=== PATIENT | male | born 1985 | race Caucasian/White ===

== ENCOUNTER 2016-10-26 18:41 | Emergency (ER) | payer SELFPAY ==
[2016-10-26] MEDS ORDERED: NORMAL SALINE 1000 ML 2,000 ML IV ONE (19:06)
--- NOTE | 2016-10-26 19:10 | ER Document Report ---
ED General - General Stated Complaint: POSSIBLE DEHYDRATION,DIZZY,MUSCLE CRAMPS Cannot obtain history due to: Altered mental status Notes: Patient is a 31-year-old male with a remote history of acute renal failure that did require dialysis for a span of 6 months who presents lethargic, dehydrated, complaining of nausea. 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 Family noticed he was acting unusually when he arrived home and EMS was contacted. His initial blood pressure for EMS was in the 90s systolic. He received 650 mL of normal saline prior to arrival with improvement of his blood pressure in the 120s systolic. Patient is quite lethargic at time of arrival and has difficulty providing meaningful history on what has been provided. Family at the bedside states that he has a chronic history of epigastric pain with near daily vomiting. Past Medical History - General Information source: Patient - Social History Smoking Status: Current Every Day Smoker Frequency of alcohol use: None Drug Abuse: Marijuana Lives with: Family Family History: Reviewed & Not Pertinent Review of Systems - Review of Systems Notes: Constitutional: Negative for fever. HENT: Negative for sore throat. Eyes: Negative for visual changes. Cardiovascular: Negative for chest pain. Respiratory: Negative for shortness of breath. Gastrointestinal: Positive for epigastric abdominal pain and nausea Genitourinary: Negative for dysuria. Musculoskeletal: Negative for back pain. Skin: Negative for rash. Neurological: Negative for headaches, weakness or numbness. 10 point ROS negative except as marked above and in HPI. Physical Exam - Vital signs Notes: PHYSICAL EXAMINATION: GENERAL: Somewhat disheveled, lethargic. GCS 14 HEAD: Atraumatic, normocephalic. EYES: Pupils equal round and reactive to light, extraocular movements intact, sclera anicteric, conjunctiva are normal. ENT: nares patent, oropharynx clear without exudates. Dry mucous membranes. NECK: Normal range of motion, supple without lymphadenopathy LUNGS: Breath sounds clear to auscultation bilaterally and equal. No wheezes rales or rhonchi. HEART: Regular tachycardia without murmurs ABDOMEN: Soft, mild epigastric tenderness to palpation, normoactive bowel sounds. No guarding, no rebound. No masses appreciated. EXTREMITIES: Normal range of motion, no pitting or edema. No cyanosis. NEUROLOGICAL: No focal neurological deficits. Moves all extremities spontaneously and on command. PSYCH: Lethargic but does answer questions appropriately SKIN: Warm, Dry, normal turgor, no rashes or lesions noted. Course - Re-evaluation Re-evalutation: 10/26/16 19:08 Patient presents with mild lethargy, GCS 14, appears clinically quite dehydrated and has a clinical history consistent with likely severe dehydration as he is working for long periods of time outdoors and having minimal oral fluid intake. He is tachycardic at time of my initial assessment. He has no focal neurologic deficits. He denies any symptoms to suggest acute subarachnoid hemorrhage, PA, acute pulmonary embolus, or acute intra-abdominal pathology. He does have some mild epigastric tenderness on exam and family reports that this is chronic and in association with recent frequent reflux symptoms. Patient himself admits that this been a problem for at least one year. Will proceed with fluids, labs and reassess. 10/26/16 21:16 Patient is much improved and is overall appearance at this time, GCS 15 alert awake it of and talking. He is joking with me during my reassessment. Vitals normalized. Laboratories show mild CK elevation and very mild IFFI. Patient is tolerated oral intake without difficulty. His epigastric pain has improved after a GI cocktail and famotidine. I have encouraged him to discontinue marijuana use for at least 30 days as some of his symptoms appear consistent with cannabis induced vomiting. At this time will discharge with return precautions and follow-up recommendations. Verbal discharge instructions given a the bedside and opportunity for questions given. Medication warnings reviewed. Patient is in agreement with this plan and has verbalized understanding of return precautions and the need for primary care follow-up in the next 24-72 hours. - Laboratory Result Diagrams: 10/26/16 19:38 10/26/16 19:38 Laboratory results interpreted by me: 10/26/16 19:38 BUN 31 H Creatinine 1.43 H Est GFR (Non-Af Amer) 58 L Creatine Kinase 199 H Discharge - Discharge Clinical Impression: Epigastric abdominal pain, Dehydration Vomiting Qualifiers: Vomiting type: unspecified Vomiting Intractability: non-intractable Nausea presence: with nausea Qualified Code(s): R11.2 - Nausea with vomiting, unspecified Condition: Good Disposition: HOME, SELF-CARE Additional Instructions: Your symptoms appear to be most consistent with stomach or upper intestinal irritation. Your evaluation here today has not demonstrated an alternative cause for your symptoms. Please begin taking famotidine 40 mg in the morning and 40 mg at night. This medicine can be purchased directly [id number]. You may also take medicine such as Pepto-Bismol or Tums to assist with your pain. Please discontinue the use of marijuana for at least 30 days to see if this likewise could be causing your repetitive episodes of vomiting. Please be sure to drink plenty of fluids when you are outside working. Please follow closely with your primary care doctor in the next 24-48 hours regarding today's emergency department visit. Please return immediately if you develop persistent vomiting, worsening pain, again having bloody bowel movements, pass out, develop a fever greater than 100.4F, or have any other symptoms that are worrisome to you.
[2016-10-26 19:54] LABS: ABSOLUTE BASOPHILS # (AUTO) 0.1 10^3/uL (0.0-0.2); ABSOLUTE EOSINOPHILS # (AUTO) 0.1 10^3/uL (0.0-0.6); ABSOLUTE LYMPHOCYTES (AUTO) 1.5 10^3/uL (0.5-4.7); ABSOLUTE NEUT (AUTO) 7.8 10^3/uL (1.7-8.2); BASOPHILS % (AUTO) 0.7 % (0-2); HEMOGLOBIN 15.4 g/dL (13.5-17.0); HGB HCT DIFFERENCE 1.2; MEAN CORPUSCULAR HEMOGLOBIN 30.4 pg (27.0-33.4); MEAN CORPUSCULAR HGB CONC 34.2 g/dL (32.0-36.0); MEAN CORPUSCULAR VOLUME 89 fl (80-97); MONOCYTES % (AUTO) 9.7 % (3-13); RED BLOOD COUNT 5.07 10^6/uL (4.35-5.55); SEGMENTED NEUTROPHILS % (AUTO) 74.6 % (42-78); WHITE BLOOD COUNT 10.5 10^3/uL (4.0-10.5)
[2016-10-26 20:14] LABS: ALANINE AMINOTRANSFERASE 38 U/L (21-72); ALBUMIN 4.5 g/dL (3.5-5.0); ALKALINE PHOSPHATASE 77 U/L (38-126); ANION GAP 13 (5-19); ASPARTATE AMINO TRANSFERASE 28 U/L (17-59); BILIRUBIN,DIRECT 0.4 mg/dL (0.0-0.4); BILIRUBIN,TOTAL 1.1 mg/dL (0.2-1.3); BLOOD UREA NITROGEN 31 mg/dL (7-20); CALCIUM 9.1 mg/dL (8.4-10.2); CARBON DIOXIDE 23 mmol/L (22-30); CHLORIDE 105 mmol/L (98-107); CREATINE KINASE 199 U/L (55-170); CREATININE RESULT 1.43 mg/dL (0.52-1.25); GLUCOSE 88 mg/dL (75-110); LIPASE 36.6 U/L (23-300); POTASSIUM 4.7 mmol/L (3.6-5.0); SODIUM 140.9 mmol/L (137-145); TOTAL PROTEIN 7.5 g/dL (6.3-8.2)
[2016-10-26] MEDS ORDERED: ONDANSETRON HCL INJ/PF 4 MG/2 ML SDV IV ONE (21:00)
[2016-10-26] MEDS ORDERED: ONDANSETRON HCL INJ/PF 4 MG/2 ML SDV ONE (21:01)
[2016-10-26] MEDS ORDERED: FAMOTIDINE 20 MG TABLET PO ONE (21:04)
[2016-10-26] MEDS ORDERED: METOCLOPRAMIDE HCL ORAL SOLN 10 MG/10 ML UDCUP PO ONE (21:05)
[2016-10-26] MEDS ORDERED: MAG HYDROX/AL HYDROX/SIMETH SUSP 30 ML UDCUP PO ONE (21:05)
[2016-10-26] MEDS ORDERED: LIDOCAINE 2% VISCOUS SOLN 20 ML UDCUP PO ONE (21:05)
[2016-10-26] MEDS ORDERED: ONDANSETRON ODT 4 MG TAB (6 TAB/DSPK) PO PRN (21:19)
[2016-10-26 21:58] VITALS: BP 123/82
--- NOTE | 2016-10-27 21:50 | EKG REPORT ---
SEVERITY:- ABNORMAL ECG - SINUS RHYTHM INCOMPLETE RIGHT BUNDLE BRANCH BLOCK : Confirmed by: Modesta Soto MD 27-Oct-2016 21:50:02
== END 2016-10-26 21:58 | disposition home or self-care (01) ==
LOC: ER 18:41
DX: E86.0 Dehydration (principal); R53.83 Other fatigue; R11.2 Nausea with vomiting, unspecified; R10.13 Epigastric pain; R00.0 Tachycardia, unspecified; F12.10 Cannabis abuse, uncomplicated; F17.200 Nicotine dependence, unspecified, uncomplicated
CPT/HCPCS: 93005; 99284; 96361; 96374; 36415; 82550; 83690; 85025; 80053; 93010; J3490; J2405; J7030

== ENCOUNTER 2016-12-07 18:11 | Emergency (ER) | payer SELFPAY ==
[2016-12-07 18:29] VITALS: BP 134/86
== END 2016-12-07 19:08 | disposition left against medical advice (07) ==
LOC: ER 18:11
DX: Z53.21 Procedure and treatment not carried out due to patient leaving prior to being seen by health care provider (principal)

== ENCOUNTER 2017-01-16 14:33 | Emergency (ER) | payer OTHER ==
[2017-01-16] MEDS ORDERED: NORMAL SALINE 1000 ML 1,000 ML IV PRN (15:40)
[2017-01-16] MEDS ORDERED: KETOROLAC TROMETHAMINE INJ/PF 30 MG/1 ML SDV IV ONE (15:41)
--- NOTE | 2017-01-16 16:01 | ER Document Report ---
ED Medical Screen (RME) - General Chief Complaint: Nausea/Vomiting Stated Complaint: NAUSEA,SHAKY,ABDOMINAL PAIN Time Seen by Provider: 01/16/17 15:40 Mode of Arrival: Ambulatory Information source: Patient TRAVEL OUTSIDE OF THE [place] 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 Several hours ago, patient developed cramping to his right lateral rib area. Patient denies any specific trauma. Patient states he has been drinking adequate fluids. No fevers or chills. No nausea or vomiting. Patient states this has happened before and related to heat exposure. Patient did not take any medication for his symptoms. - Related Data Allergies/Adverse Reactions: No Known Allergies Allergy (Verified 01/16/17 16:07) Past Medical History - Social History Chew tobacco use (# tins/day): No Frequency of alcohol use: None Drug Abuse: None - Medical History Medical History: Negative Renal/ Medical History: Denies: Hx Peritoneal Dialysis Review of Systems - Review of Systems Respiratory: Other - Chest wall pain -: Yes All other systems reviewed and negative Physical Exam - Vital signs Vitals: Temp Pulse Resp BP Pulse Ox 98.1 F 83 18 130/89 H 100 01/16/17 14:38 01/16/17 14:38 01/16/17 14:38 01/16/17 14:38 01/16/17 14:38 Interpretation: Normal - General General appearance: Appears well In distress: Mild - HEENT Head: Normocephalic, Atraumatic Eyes: Normal Pupils: PERRL - Respiratory Respiratory status: No respiratory distress Chest status: Tender - Right lateral ribs Breath sounds: Normal Chest palpation: Normal - Cardiovascular Rhythm: Regular Heart sounds: Normal auscultation Murmur: No - Abdominal Inspection: Normal Distension: No distension Bowel sounds: Normal Tenderness: Nontender Organomegaly: No organomegaly - Extremities General upper extremity: Normal inspection, Nontender, Normal color, Normal ROM , Normal temperature General lower extremity: Normal inspection, Nontender, Normal color, Normal ROM , Normal temperature, Normal weight bearing. No: Mandie's sign - Neurological Neuro grossly intact: Yes Cognition: Normal Orientation: AAOx4 Gisela Coma Scale Eye Opening: Spontaneous Gisela Coma Scale Verbal: Oriented [place] Coma Scale Motor: Obeys Commands [place] Coma Scale Total: 15 Speech: Normal Motor strength normal: LUE, RUE, LLE, RLE Sensory: Normal - Skin Skin Temperature: Warm Skin Moisture: Dry Skin Color: Normal Course - Re-evaluation Re-evalutation: 01/16/17 18:24 Patient will be placed in the back treatment area. He will be reassessed by another ED provider. - Vital Signs Vital signs: Temp Pulse Resp BP Pulse Ox 98.1 F 83 18 130/89 H 100 01/16/17 14:38 01/16/17 14:38 01/16/17 14:38 01/16/17 14:38 01/16/17 14:38 - Laboratory Result Diagrams: 01/16/17 15:50 01/16/17 15:50 Laboratory results interpreted by me: 01/16/17 01/16/17 15:50 15:50 WBC 14.6 H RBC 6.01 H Hgb 18.1 H Hct 52.8 H Absolute Neutrophils 8.9 H Absolute Monocytes 1.7 H Chloride 93 L Anion Gap 24 H BUN 29 H Creatinine 1.78 H Est GFR ( Amer) 55 L Est GFR (Non-Af Amer) 45 L Calcium 12.3 H* Total Protein 10.9 H Albumin 6.4 H
[2017-01-16 16:05] LABS: ABSOLUTE BASOPHILS # (AUTO) 0.2 10^3/uL (0.0-0.2); ABSOLUTE EOSINOPHILS # (AUTO) 0.1 10^3/uL (0.0-0.6); ABSOLUTE LYMPHOCYTES (AUTO) 3.7 10^3/uL (0.5-4.7); ABSOLUTE MONOCYTES (AUTO) 1.7 10^3/uL (0.1-1.4); ABSOLUTE NEUT (AUTO) 8.9 10^3/uL (1.7-8.2); EOSINOPHILS % (AUTO) 0.9 % (0-6); HEMATOCRIT 52.8 % (37.9-51.0); HEMOGLOBIN 18.1 g/dL (13.5-17.0); HGB HCT DIFFERENCE 1.5; LYMPHOCYTES % (AUTO) 25.3 % (13-45); MEAN CORPUSCULAR HEMOGLOBIN 30.2 pg (27.0-33.4); MEAN CORPUSCULAR HGB CONC 34.3 g/dL (32.0-36.0); MEAN CORPUSCULAR VOLUME 88 fl (80-97); MONOCYTES % (AUTO) 11.6 % (3-13); RED BLOOD COUNT 6.01 10^6/uL (4.35-5.55); RED CELL DISTRIBUTION WIDTH 12.8 % (11.5-14.0); SEGMENTED NEUTROPHILS % (AUTO) 61.2 % (42-78); WHITE BLOOD COUNT 14.6 10^3/uL (4.0-10.5)
--- NOTE | 2017-01-16 16:18 | ER Document Report ---
ED General - General Mode of Arrival: Ambulatory Information source: Patient TRAVEL OUTSIDE OF THE [place] IN LAST 30 DAYS: No - HPI Onset: Other Similar symptoms previously: Yes <THU ADAMS - Last Filed: 01/16/17 17:37> <LUCIANO SINHA - Last Filed: 01/16/17 18:31> - General Chief Complaint: Nausea/Vomiting Stated Complaint: NAUSEA,SHAKY,ABDOMINAL PAIN Time Seen by Provider: 01/16/17 15:40 Notes: Patient is a 31-year-old male who presents to the emergency department today with complaints of diffuse muscle cramping. Patient states he has muscle cramping in his rib cage on the right side, legs bilaterally, and arms bilaterally. Patient states he has had symptoms like this in the past when working outside. Patient states he was working out in the heat all day today. ( THU ADAMS) - Related Data Allergies/Adverse Reactions: No Known Allergies Allergy (Verified 01/16/17 16:07) Past Medical History - General Information source: Patient - Social History Smoking Status: Current Every Day Smoker Cigarette use (# per day): Yes Chew tobacco use (# tins/day): No Frequency of alcohol use: None Drug Abuse: None Lives with: Family Family History: Reviewed & Not Pertinent Patient has suicidal ideation: No Patient has homicidal ideation: No Endocrine Medical History: Reports: Other - "hypoglycemia" Past Surgical History: Reports: Hx Herniorrhaphy - x2, Other - "head surgery", "back surgery" <THU ADAMS - Last Filed: 01/16/17 17:37> Review of Systems - Review of Systems Constitutional: No symptoms reported EENT: No symptoms reported Cardiovascular: No symptoms reported Respiratory: No symptoms reported Gastrointestinal: No symptoms reported Genitourinary: No symptoms reported Male Genitourinary: No symptoms reported Musculoskeletal: See HPI, Other - diffuse muscle cramps, right ribs/legs/arms Skin: No symptoms reported Hematologic/Lymphatic: No symptoms reported Neurological/Psychological: No symptoms reported -: Yes All other systems reviewed and negative <THU ADAMS - Last Filed: 01/16/17 17:37> Physical Exam <THU ADAMS - Last Filed: 01/16/17 17:37> <LUCIANO SINHA - Last Filed: 01/16/17 18:31> - Vital signs Vitals: Temp Pulse Resp BP Pulse Ox 98.1 F 83 18 130/89 H 100 01/16/17 14:38 01/16/17 14:38 01/16/17 14:38 01/16/17 14:38 01/16/17 14:38 - Notes Notes: Physical Exam: General: Alert. HEENT: Normocephalic. Atraumatic. PERRL. Extraocular movements intact. Oropharynx clear. Dry mucous membranes. Neck: Supple. Non-tender. Respiratory: No respiratory distress. Clear and equal breath sounds bilaterally. Right lateral chest wall tenderness with palpation. Cardiovascular: Regular rate and rhythm. Abdominal: Normal Inspection. Non-tender. No distension. Normal Bowel Sounds. Back: Non-tender. No deformity or step off. Extremities: Moves all four extremities. Upper extremities: Normal inspection. Normal ROM. Lower extremities: Normal inspection. No edema. Normal ROM. Neurological: Normal cognition. AAOx4. Normal speech. Psychological: Normal affect. Normal Mood. Skin: Hot to the touch. Appears flushed. (THU ADAMS) Course - Laboratory Result Diagrams: 01/16/17 15:50 01/16/17 15:50 <THU ADAMS - Last Filed: 01/16/17 17:37> - Laboratory Result Diagrams: 01/16/17 15:50 01/16/17 15:50 <LUCIANO SINHA - Last Filed: 01/16/17 18:31> - Re-evaluation Re-evalutation: 01/16/17 17:36 Patient is a 31-year-old male who was working outside all day and presents with feeling lightheaded and feeling cramping all over. The patient is clinically dehydrated and he is in some renal failure on his blood work. This is been explained to the patient. He is received 2 L of fluid. He is not really keen on staying at this point, however is recommended that he get at least another liter of fluid. He has been advised that he is free to leave at any time although it would be recommended that he get rehydrated before he goes home. 01/16/17 18:30 Patient has received his third bag of fluid and would like to go home. He is to stay hydrated at home. No questions. Stable for discharge. (LUCIANO SINHA) - Vital Signs Vital signs: Temp Pulse Resp BP Pulse Ox 98.1 F 83 18 130/89 H 100 01/16/17 14:38 01/16/17 14:38 01/16/17 14:38 01/16/17 14:38 01/16/17 14:38 - Laboratory Laboratory results interpreted by me: 01/16/17 01/16/17 15:50 15:50 WBC 14.6 H RBC 6.01 H Hgb 18.1 H Hct 52.8 H Absolute Neutrophils 8.9 H Absolute Monocytes 1.7 H Chloride 93 L Anion Gap 24 H BUN 29 H Creatinine 1.78 H Est GFR ( Amer) 55 L Est GFR (Non-Af Amer) 45 L Calcium 12.3 H* Total Protein 10.9 H Albumin 6.4 H Discharge <THU ADAMS - Last Filed: 01/16/17 17:37> <LUCIANO SINHA - Last Filed: 01/16/17 18:31> - Discharge Clinical Impression: Dehydration, Acute kidney injury Heat exhaustion Qualifiers: Encounter type: initial encounter Qualified Code(s): T67.5XXA - Heat exhaustion , unspecified, initial encounter Condition: Stable Disposition: HOME, SELF-CARE Instructions: Heat Exhaustion ([facility]), Dehydration ([facility]) Forms: Return to Work Scribe Attestation: 01/16/17 18:31 I personally performed the services described in the documentation, reviewed and edited the documentation which was dictated to the scribe in my presence, and it accurately records my words and actions. (LUCIANO SINHA) Scribe Documentation - Scribe Written by Scribe:: Curt Aguilar, 01/16/2017 1639 acting as scribe for :: Natalie <THU ADAMS - Last Filed: 01/16/17 17:37>
[2017-01-16 16:24] LABS: ALANINE AMINOTRANSFERASE 34 U/L (21-72); ALKALINE PHOSPHATASE 97 U/L (38-126); ASPARTATE AMINO TRANSFERASE 28 U/L (17-59); BILIRUBIN,DIRECT 0.4 mg/dL (0.0-0.4); BILIRUBIN,TOTAL 1.3 mg/dL (0.2-1.3); BLOOD UREA NITROGEN 29 mg/dL (7-20); CREATININE RESULT 1.78 mg/dL (0.52-1.25); GLUCOSE 96 mg/dL (75-110); POTASSIUM 4.4 mmol/L (3.6-5.0); TOTAL PROTEIN 10.9 g/dL (6.3-8.2)
[2017-01-16 16:33] LABS: CARBON DIOXIDE 23 mmol/L (22-30); CHLORIDE 93 mmol/L (98-107); SODIUM 139.6 mmol/L (137-145)
[2017-01-16] MEDS ORDERED: RINGERS SOLUTION,LACTATED 1,000 ML IV ONE ×2 (16:36→17:25)
[2017-01-16 16:56] LABS: ALBUMIN 6.4 g/dL (3.5-5.0); ANION GAP 24 (5-19)
[2017-01-16 16:57] LABS: CALCIUM 12.3 mg/dL (8.4-10.2)
[2017-01-16 18:37] VITALS: BP 134/82
== END 2017-01-16 18:37 | disposition home or self-care (01) ==
LOC: ER 14:33
DX: E86.0 Dehydration (principal); N17.9 Acute kidney failure, unspecified; T67.5XXA Heat exhaustion, unspecified, initial encounter; R11.2 Nausea with vomiting, unspecified; R10.9 Unspecified abdominal pain; R07.81 Pleurodynia; F17.210 Nicotine dependence, cigarettes, uncomplicated; X30.XXXA Exposure to excessive natural heat, initial encounter; Y99.0 Civilian activity done for income or pay
CPT/HCPCS: 99284; 96361; 96374; 36415; 82553; 82550; 85025; 80053; J1885; J7030; J7120

== ENCOUNTER 2017-06-24 18:40 | Emergency (ER) | payer SELFPAY ==
[2017-06-24 19:15] LABS: ABSOLUTE BASOPHILS # (AUTO) 0.1 10^3/uL (0.0-0.2); ABSOLUTE EOSINOPHILS # (AUTO) 0.2 10^3/uL (0.0-0.6); ABSOLUTE LYMPHOCYTES (AUTO) 1.4 10^3/uL (0.5-4.7); ABSOLUTE MONOCYTES (AUTO) 0.8 10^3/uL (0.1-1.4); ABSOLUTE NEUT (AUTO) 9.4 10^3/uL (1.7-8.2); BASOPHILS % (AUTO) 0.8 % (0-2); EOSINOPHILS % (AUTO) 1.6 % (0-6); HEMOGLOBIN 16.8 g/dL (13.5-17.0); HGB HCT DIFFERENCE 2.4; LYMPHOCYTES % (AUTO) 11.5 % (13-45); MEAN CORPUSCULAR HEMOGLOBIN 31.1 pg (27.0-33.4); MEAN CORPUSCULAR VOLUME 89 fl (80-97); MONOCYTES % (AUTO) 6.7 % (3-13); RED BLOOD COUNT 5.41 10^6/uL (4.35-5.55); RED CELL DISTRIBUTION WIDTH 13.4 % (11.5-14.0); SEGMENTED NEUTROPHILS % (AUTO) 79.4 % (42-78); WHITE BLOOD COUNT 11.9 10^3/uL (4.0-10.5)
[2017-06-24] MEDS ORDERED: QUETIAPINE FUMARATE 100 MG TABLET PO ONE (19:21)
--- NOTE | 2017-06-24 19:21 | ER Document Report ---
ED Psych Disorder / Suicide - General Chief Complaint: Psych Problem Stated Complaint: SUICIDAL IDEATIONS Time Seen by Provider: 06/24/17 19:20 Notes: 32 years old male with a history of depression has not been taking any medication over a year, presents today with crying and saying that his mind is racing unable to control it unable to sleep and having thoughts of killing himself. But has no methods. Therefore presented to the ED for help. Denies any auditory or visual hallucination. Denies any substance abuse except cannabis. Denies any alcohol abuse. TRAVEL OUTSIDE OF THE [place] IN LAST 30 DAYS: No - Related Data Allergies/Adverse Reactions: No Known Allergies Allergy (Verified 01/16/17 16:07) Past Medical History - Social History Smoking Status: Current Every Day Smoker Family History: Reviewed & Not Pertinent Patient has suicidal ideation: Yes Patient has homicidal ideation: No Renal/ Medical History: Denies: Hx Peritoneal Dialysis Psychiatric Medical History: Reports: Hx Depression Past Surgical History: Reports: Hx Herniorrhaphy - x2, Other - "head surgery", "back surgery" Review of Systems - Review of Systems Notes: REVIEW OF SYSTEMS: CONSTITUTIONAL : Denies fever, chills, or sweats. Denies recent illness. EENT: Denies eye, ear, throat, or mouth pain or symptoms. Denies nasal or sinus congestion or discharge. Denies throat, tongue, or mouth swelling or difficulty swallowing. CARDIOVASCULAR: Denies chest pain. Denies palpitations or racing or irregular heart beat. Denies ankle edema. RESPIRATORY: Denies cough, cold, or chest congestion. Denies shortness of breath, difficulty breathing, or wheezing. GASTROINTESTINAL: Denies abdominal pain or distention. Denies nausea, vomiting , or diarrhea. Denies blood in vomitus, stools, or per rectum. Denies black, tarry stools. Denies constipation. GENITOURINARY: Denies difficulty urinating, painful urination, burning, frequency, blood in urine, or discharge. MUSCULOSKELETAL: Denies back or neck pain or stiffness. Denies joint pain or swelling. SKIN: Denies rash, lesions or sores. HEMATOLOGIC : Denies easy bruising or bleeding. LYMPHATIC: Denies swollen, enlarged glands. NEUROLOGICAL: Denies confusion or altered mental status. Denies passing out or loss of consciousness. Denies dizziness or lightheadedness. Denies headache. Denies weakness or paralysis or loss of use of either side. Denies problems with gait or speech. Denies sensory loss, numbness, or tingling. Denies seizures. PSYCHIATRIC: As per history of complain ALL OTHER SYSTEMS REVIEWED AND NEGATIVE. Dictation was performed using [employer] recognition software PHYSICAL EXAMINATION: GENERAL: Well-appearing, well-nourished and in no acute distress. HEAD: Atraumatic, normocephalic. EYES: Pupils equal round and reactive to light, extraocular movements intact, sclera anicteric, conjunctiva are normal. ENT: Nares patent, oropharynx clear without exudates. Moist mucous membranes. NECK: Normal range of motion, supple without lymphadenopathy LUNGS: Breath sounds clear to auscultation bilaterally and equal. No wheezes rales or rhonchi. HEART: Regular rate and rhythm without murmurs ABDOMEN: Soft, nontender, nondistended abdomen. No guarding, no rebound. No masses appreciated. Musculoskeletal: Normal range of motion, no pitting or edema. No cyanosis. NEUROLOGICAL: Cranial nerves grossly intact. Normal speech, normal gait. Normal sensory, motor exams PSYCH: Suicidal, depressed crying SKIN: Warm, Dry, normal turgor, no rashes or lesions noted. Physical Exam - Vital signs Vitals: Temp Pulse Resp BP Pulse Ox 98 F 86 18 108/85 96 06/24/17 20:13 06/24/17 20:13 06/24/17 20:13 06/24/17 20:13 06/24/17 20:13 Course - Re-evaluation Re-evalutation: 06/24/17 21:46 lab reports were reviewed, IVC papers signed. - Vital Signs Vital signs: Temp Pulse Resp BP Pulse Ox 98 F 86 18 108/85 96 06/24/17 20:13 06/24/17 20:13 06/24/17 20:13 06/24/17 20:13 06/24/17 20:13 - Laboratory Result Diagrams: 06/24/17 18:55 06/24/17 18:55 Laboratory results interpreted by me: 06/24/17 06/24/17 18:55 18:55 WBC 11.9 H Seg Neutrophils % 79.4 H Lymphocytes % 11.5 L Absolute Neutrophils 9.4 H Carbon Dioxide 21 L ALT 76 H Albumin 5.1 H Salicylates < 1.0 L Acetaminophen < 10 L Discharge - Discharge Clinical Impression: Depression Qualifiers: Depression Type: major depressive disorder Major depression recurrence: recurrent Active/Remission status: currently active Major depression episode severity: severe Psychotic features: without psychotic features Qualified Code(s ): F33.2 - Major depressive disorder, recurrent severe without psychotic features Suicidal behavior Qualifiers: Attempted self-injury: without attempted self-injury Qualified Code(s): R46.89 - Other symptoms and signs involving appearance and behavior Disposition: PSYCH HOSP/UNIT
[2017-06-24 19:29] LABS: ALANINE AMINOTRANSFERASE 76 U/L (21-72); ALBUMIN 5.1 g/dL (3.5-5.0); ALKALINE PHOSPHATASE 71 U/L (38-126); ANION GAP 17 (5-19); ASPARTATE AMINO TRANSFERASE 31 U/L (17-59); BILIRUBIN,DIRECT 0.2 mg/dL (0.0-0.4); BILIRUBIN,TOTAL 0.5 mg/dL (0.2-1.3); BLOOD UREA NITROGEN 17 mg/dL (7-20); CARBON DIOXIDE 21 mmol/L (22-30); CHLORIDE 106 mmol/L (98-107); GLUCOSE 97 mg/dL (75-110); SODIUM 143.6 mmol/L (137-145); TOTAL PROTEIN 8.1 g/dL (6.3-8.2)
[2017-06-24 19:30] LABS: ALCOHOL < 10 mg/dL (NONE DETECTED)
[2017-06-24 19:41] LABS: APPEARANCE,URINE SLIGHTLY-CLOUDY; BILIRUBIN,URINE NEGATIVE (NEGATIVE); GLUCOSE, URINE NEGATIVE (NEGATIVE); KETONES,URINE NEGATIVE (NEGATIVE); LEUKOCYTE ESTERASE,URINE NEGATIVE (NEGATIVE); NITRITE,URINE NEGATIVE (NEGATIVE); PROTEIN,URINE NEGATIVE (NEGATIVE); URINE SPECIFIC GRAVITY 1.025; UROBILINOGEN,URINE NEGATIVE mg/dL (<2.0)
[2017-06-24 19:52] LABS: URINE BARBITURATES SCREEN NEGATIVE; URINE METHADONE SCREEN NEGATIVE; URINE OPIATES LOW NEGATIVE; URINE PHENCYCLIDINE SCREEN NEGATIVE
--- NOTE | 2017-06-24 22:50 | EKG REPORT ---
SEVERITY:- ABNORMAL ECG - SINUS RHYTHM INCOMPLETE RIGHT BUNDLE BRANCH BLOCK : Confirmed by: Melba Jordan 24-Jun-2017 22:49:54
--- NOTE | 2017-06-25 10:15 | ER Document Report ---
Doctor's Note Notes: 06/25/17 10:14 Rounds: Chart reviewed and patient interviewed. Patient being evaluated for depression and probable manic psychosis. Expressed inability to sleep and was crying at times after his admission last night. Labs are all normal except for being positive for marijuana and a probably benign white count of 11,900. No evidence of infection anywhere. Vital signs were all normal. Patient seems to be a little agitated and anxious, but answers questions appropriately. Patient appears to be medically stable for transfer or discharge. Khoi Jane MD
[2017-06-25] MEDS ORDERED: OLANZAPINE 5 MG TABLET PO ONE (11:28)
[2017-06-25 13:11] VITALS: BP 135/86
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
== END 2017-06-25 12:55 | disposition home or self-care (01) ==
LOC: ER 18:40
DX: F33.2 Major depressive disorder, recurrent severe without psychotic features (principal); F17.200 Nicotine dependence, unspecified, uncomplicated
CPT/HCPCS: 36415; 80053; 80307; 81001; 85025; 93005; 93010; 99284